=== PATIENT | female | born 1975 | race Caucasian/White ===

== ENCOUNTER 2022-04-26 10:09 | Outpatient (CLI) | payer OTHER | END 2022-04-26 10:10 | disposition home or self-care (01) | LOC: LABBT 10:09 | PROVIDERS: ATTEND Internal Medicine | DX: Z12.11 Encounter for screening for malignant neoplasm of colon (principal); Z20.822 Contact with and (suspected) exposure to COVID-19 | CPT/HCPCS: U0003; U0005 ==

== ENCOUNTER 2022-05-01 05:40 | Day surgery (SDC) | payer OTHER ==
[2022-04-26 15:43] VITALS: BMI 45.7
[2022-05-01] MEDS ORDERED: PROPOFOL 200 MG/20 ML VIAL ONE (08:18)
[2022-05-01] MEDS ORDERED: Lidocaine 1% PF 5 ML VIAL ONE (08:18)
== END 2022-05-01 09:30 | disposition home or self-care (01) ==
LOC: SDC 05:40
PROVIDERS: ATTEND Internal Medicine
PROC: 0DBP8ZX Excision of Rectum, Via Natural or Artificial Opening Endoscopic, Diagnostic (ICD-10-PCS; principal; 2022-05-01)
DX: Z12.11 Encounter for screening for malignant neoplasm of colon (principal); K62.1 Rectal polyp; K57.30 Diverticulosis of large intestine without perforation or abscess without bleeding; K64.4 Residual hemorrhoidal skin tags; K64.8 Other hemorrhoids; I10 Essential (primary) hypertension; G47.30 Sleep apnea, unspecified; E66.9 Obesity, unspecified; Z68.42 Body mass index [BMI] 45.0-49.9, adult; Z79.899 Other long term (current) drug therapy
CPT/HCPCS: 88305; J2704